=== PATIENT | male | born 1990 | race Caucasian/White ===

== ENCOUNTER 2022-01-20 15:22 | Emergency (ER) | payer OTHER ==
[~2022-01-20] VITALS: Ht 190.5 cm; Wt 97.7 kg
[2022-01-20] MEDS ORDERED: PERTUSS(ACELL),DIPH,TET VAC/PF 0.5 ML SYRINGE IM. ONE (16:00)
[2022-01-20 16:22] VITALS: BP 140/73
== END 2022-01-20 16:33 | disposition home or self-care (01) ==
LOC: EMS 15:31
DX: S91.032A Puncture wound without foreign body, left ankle, initial encounter (principal); F17.200 Nicotine dependence, unspecified, uncomplicated; F11.90 Opioid use, unspecified, uncomplicated; Z88.5 Allergy status to narcotic agent; W54.0XXA Bitten by dog, initial encounter; Y93.89 Activity, other specified; Y92.89 Other specified places as the place of occurrence of the external cause; Y99.8 Other external cause status
CPT/HCPCS: 90471; 90715; 99283